=== PATIENT | female | born 1970 | race Caucasian/White ===

== ENCOUNTER 2023-07-12 14:44 | Emergency (ER) | payer SELFPAY ==
[~2023-07-12] VITALS: Ht 157.5 cm; Wt 45.0 kg
[2023-07-12 14:50] VITALS: TEMP 97.6; O2SAT 98
[2023-07-12 16:30] VITALS: BP 128/76; PULSE 86; RESP 18
[2023-07-12] MEDS ORDERED: ACETAMINOPHEN WITH CODEINE 300/30MG TABLET PO ONE (16:30)
[2023-07-12] MEDS ORDERED: T3 PO (16:53)
[2023-07-12] MEDS ORDERED: AMOX-494 MT (16:53)
== END 2023-07-12 17:34 | disposition home or self-care (01) ==
LOC: ER 14:51
DX: K13.79 Other lesions of oral mucosa (principal); Z48.814 Encounter for surgical aftercare following surgery on the teeth or oral cavity
CPT/HCPCS: 99283